=== PATIENT | female | born 1990 | race Caucasian/White ===

== ENCOUNTER 2016-06-17 11:14 | Emergency (ER) | payer SELFPAY ==
[~2016-06-17 11:14] MED LIST: ORTHO-NOVUM 1/31 TAB PO; ULTRAM50 M1 PO
== END 2016-06-17 11:22 | disposition left against medical advice (07) | DRG 951 ==
LOC: ED 11:14 → LWOBS 11:22
DX: Z91.19 Patient's noncompliance with other medical treatment and regimen (principal)